=== PATIENT | female | born 1990 | race Caucasian/White ===

== ENCOUNTER 2023-10-12 09:08 | Emergency (ER) | payer BC, MEDICAID, OTHER ==
[~2023-10-12] VITALS: Ht 174 cm; Wt 95.4 kg
[2023-10-12 09:10] VITALS: TEMP 98.3
[2023-10-12 10:09] VITALS: BP 122/89; PULSE 81; RESP 16; O2SAT 98
[2023-10-12 10:45] LABS: URINE AMPHETAMINE SCREEN NEGATIVE (Neg); URINE BARBITUATE SCREEN NEGATIVE (Neg); URINE BENZODIAZEPINES SCREEN NEGATIVE (Neg); URINE CANNABINOID SCREEN POSITIVE (Neg); URINE COCAINE SCREEN NEGATIVE (Neg); URINE METHADONE SCREEN NEGATIVE (Neg); URINE OPIATE SCREEN NEGATIVE (Neg); URINE PHENCYCLIDINE SCREEN NEGATIVE (Neg)
== END 2023-10-12 10:11 | disposition home or self-care (01) ==
LOC: ER 09:09
DX: S90.32XA Contusion of left foot, initial encounter (principal); M79.89 Other specified soft tissue disorders; X58.XXXA Exposure to other specified factors, initial encounter; Y93.89 Activity, other specified; Y92.89 Other specified places as the place of occurrence of the external cause; Y99.8 Other external cause status
CPT/HCPCS: 73630; 80305; 99283; A6449

== ENCOUNTER 2024-10-16 09:08 | Emergency (ER) | payer MEDICAID, OTHER ==
[~2024-10-16] VITALS: Ht 175.3 cm; Wt 109.2 kg
[2024-10-16 09:12] VITALS: BP 123/82; PULSE 80; RESP 20; TEMP 97.4; O2SAT 96
--- NOTE | 2024-10-16 10:51 | Physician Documentation ---
History of Present Illness ~ Chief Complaint: Anxiety Stated Complaint: POSS ANXIETY/DIZZINESS Time Seen by MD: 09:17 OK to notify your PCP?: Yes Primary Medical Doctor: none Source: patient, family Mode of Arrival: POV Exam Limitations: no limitations HPI 34-year-old female who is here with chest pain which she states radiates to her back. She states the pain started about 2 hours ago she denies any pre arrival treatment. She reports a long history of anxiety and panic attacks and states this could just be the worst panic attack of my life but my mom has a history of cardiac issues so I am not sure. She states that the chest pain is not worsened with exertion. She states in fact nothing makes the chest pain better or worse. She is not on control she is a smoker. No prior cardiac issues. Medication Reconciliation Allergies: Coded Allergies: No Known Allergies (Unverified , 10/16/24) Past Medical History Past Medical History: Anxiety Past Surgical History: no surgical history Smoking Status: Current every day smoker Drug Use: none Lives In: Home Review of Systems All Other Systems at this time: Reviewed and Negative Physical Exam Vital Signs: Temperature: 97.4, Source: Temporal, Heart Rate: 80, Respiratory Rate: 20, BP: 123/82, Pulse Oximetry: 96, Weight: 109.200 Oxygen Flow Rate: 0 Physical Exam General Appearance: Alert, WD/WN. NAD. HEENT: NCAT, PERRL, EOMI. Neck: Supple, trachea midline. Lungs: Breathing unlabored Extremities: No edema. Skin: Warm/dry, normal color Neurological: Alert and oriented x4, normal gait. Psychiatric: Affect congruent with mood. Progress Progress Note EKG NORMAL NO ST CHANGES, PATHOLOGIC QWAVES Results/Orders Results/Orders Completed Orders - GERSON OLIVERA Lorazepam Tablet (Ativan Tablet) (10/16/24 09:20) Vital Signs 10/16/24 09:12 Temp 97.4 Pulse 80 Resp 20 B/P (MAP) 123/82 Pulse Ox 96 O2 Flow Rate 0 Medical Decision Making Differential Dx:Considerations: Include: Alcohol abuse, Anxiety, Bipolar disorder, Conversion disorder, Depression, Encephaloathy, Homicidal, Panic disorder, Personality disorder, Schizophrenia, Substance abuse, Suicidal, Other Differential Diagnosis Considering patient's chest pain was not worsened with exertion it did not seem a cardiac to me especially given her long history of anxiety with panic attacks. I wanted to 1st start with giving her a dosage of Ativan to see if this helped especially given the fact that her EKG here was normal no ST changes or pathologic Q-waves. Patient unfortunately left prior to completion of treatment or evaluation. Departure Time of Disposition: 10:47 Disposition: 07 LEFT AWOL/ELOPED Impression: Primary Impression: Anxiety attack Additional Impression: Chest pain Qualified Codes: R07.9 - Chest pain, unspecified Condition: Fair Additional Instructions: PATIENT LEFT PRIOR TO COMPLETION OF WORK UP OR TREATMENT WITH [facility] Referrals: NO PRIMARY CARE PROVIDER (PCP) Education Educated: Patient Educated regarding: diagnosis, treatment, need for follow up Signature Scribe Signature: X Attestation: GERSON ARMENTA Oct 16, 2024 10:51
--- NOTE | 2024-10-16 12:33 | ELECTROCARDIOGRAPH REPORT ---
[facility] Test Date: 2024-10-16 Test Time: 09:13:53 Pat Name: SALINA BOUCHER Department: ER Room: Gender: F Ssis Developer: : 1990 Requested By: DEPARTMENT EMERGENCY Order Number: [id number] Reading MD: Measurements Intervals [place] Rate: 80 P: 51 ND: 139 QRS: 78 QRSD: 95 T: 55 QT: 412 QTc: 476 Interpretive Statements Sinus rhythm Borderline prolonged QT interval Baseline wander in lead(s) II,III,aVF,V6 Please click the below link to view image of tracing.
== END 2024-10-16 11:26 | disposition left against medical advice (07) ==
LOC: ER 09:09
DX: F41.0 Panic disorder [episodic paroxysmal anxiety] (principal); R07.9 Chest pain, unspecified; F17.200 Nicotine dependence, unspecified, uncomplicated
CPT/HCPCS: 93005; 99283